=== PATIENT | female | born 2000 | race Caucasian/White ===

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

== ENCOUNTER 2021-07-04 16:50 | Emergency (ER) | payer OTHER ==
[2021-07-04] MEDS ORDERED: Bicillin LA 1.2 MILLION UNITS/2 ML SYRINGE ONE (17:41)
== END 2021-07-04 18:09 | disposition home or self-care (01) ==
LOC: ERS 16:50
DX: J02.0 Streptococcal pharyngitis (principal); M25.561 Pain in right knee; Z79.899 Other long term (current) drug therapy
CPT/HCPCS: 96372; J0561